=== PATIENT | male | born 1990 | race African-American/Black ===

== ENCOUNTER 2016-10-17 11:35 | Emergency (ER) | payer SELFPAY ==
[~2016-10-17] VITALS: Ht 180.3 cm; Wt 79.4 kg
[2016-10-18 23:41] LABS: CHLAMYDIA TRACH Not Detected (Not Detected); N GONOR Detected (Not Detected)
== END 2016-10-17 12:40 | disposition home or self-care (01) ==
LOC: SED 11:35
PROVIDERS: Student in an Organized Health Care Education/Training Program
DX: A56.01 Chlamydial cystitis and urethritis (principal); A54.01 Gonococcal cystitis and urethritis, unspecified; Z88.8 Allergy status to other drugs, medicaments and biological substances
CPT/HCPCS: 87491; 87591; 96372; 99283; J0696